=== PATIENT | female | born 1980 | race Caucasian/White ===

== ENCOUNTER → 2024-01-07 09:59 | Outpatient (CLI) | payer OTHER, SELFPAY ==
--- NOTE | 2024-01-07 10:02 | DI.ECHO.S_ITS ---
[facility]---------+ [facility] : : [address] : : [place] : : [id number] : : Phone: [phone] Echocardiogram Report + + :Name: URVASHI BURDICK Study Date: 01/07/2024 Height: 69 in : :Hospital ReadingLocation: Weight: 240 lb : : Gender: Female BSA: 2.2 m2 : :: 1980 Age: 43 yrs BP: 122/94 mmHg: :Reason For Study: ARRHYTHMIA/VENTRAL HERNIA : :Ordering Physician: GERA, : :BHANU Performed By: Rodrigue Cadena : :Referring: [email or web address] : + + Interpretation Summary The ejection fraction is estimated to be 55-60%. There is no significant valvular heart disease. Procedure: A two-dimensional transthoracic echocardiogram with color flow and Doppler was performed. The study quality was technically adequate. There is no prior echocardiogram noted for this patient. The patient was in normal sinus rhythm during the exam. The heart rate ranged between 68-81 bpm during the study. Left Ventricle: The left ventricle is normal in size and wall thickness. The ejection fraction is estimated to be 55-60%. Left ventricular wall motion is normal. Right Ventricle: The right ventricle is not well visualized. Atria: The left atrial size is normal. Right atrium not well visualized. The interatrial septum grossly appears intact with no obvious evidence for an atrial septal defect. Mitral Valve: The mitral valve is normal in structure and function. There is no mitral valve stenosis. There is no mitral regurgitation noted. Aortic Valve: The aortic valve is trileaflet. There is no aortic valve stenosis. No aortic regurgitation is present. Tricuspid Valve: The tricuspid valve is not well visualized, but is grossly normal. There is no tricuspid stenosis. No tricuspid regurgitation. Pulmonic Valve: The pulmonic valve is not well visualized. There is no pulmonic valvular stenosis. There is no pulmonic valvular regurgitation. Great Vessels: The aortic root is normal size. The ascending aorta could not be visualized. The inferior vena cava was not visualized. Pericardium/ Pleura There is no pericardial effusion. There is no pleural effusion. MMode/2D Measurements & Calculations LVIDd: 4.6 cm LVOT diam: 2.0 cm LVIDs: 3.0 cm Ao root diam: 3.1 cm FS: 35.3 % asc Aorta Diam: 3.1 cm IVSd: 0.92 cm Ao Arch Diam (Prox Trans): 2.6 cm LVPWd: 0.89 cm LV thurman. diameter/BSA (cm/m^2): 2.1 LV sys. diameter/BSA (cm/m^2): 1.3 LA A2 area: 12.2 cm2 LA A4 area: 13.5 cm2 LA length (vol): 5.4 cm LA vol: 26.0 ml LA vol index: 11.7 ml/m2 Doppler Measurements & Calculations Ao V2 max: 123.8 cm/sec LVOT Max Jose: 121.6 cm/sec Ao V2 mean: 91.7 cm/sec LV V1 max P.9 mmHg Ao max P.1 mmHg LV V1 VTI: 24.9 cm Ao mean P.6 mmHg BERNIE(I,D): 2.7 cm2 Ao V2 VTI: 28.6 cm BERNIE(V,D): 3.0 cm2 sev ratio: 0.87 BERNIE indexed to BSA (cm^2/m^2): 1.2 MV E max jose: 58.0 cm/sec TR max jose: 224.6 cm/sec MV A max jose: 72.4 cm/sec TR max P.2 mmHg MV E/A: 0.80 PA V2 max: 88.8 cm/sec Med Peak E' Jose: 8.8 cm/sec PA V2 mean: 64.0 cm/sec E/E' med: 6.6 PA mean P.8 mmHg Lat Peak E' Jose: 8.6 cm/sec PA pr(Accel): 29.3 mmHg E/E' lat: 6.8 E/e' average: 6.7 MV dec time: 0.15 sec SV(LVOT): 75.9 ml Reading Physician:12:36 PM
== END ==
LOC: ECHO 10:01
PROVIDERS: Referring Provider Physician Assistant; Visit Provider Physician Assistant
DX: I49.9 Cardiac arrhythmia, unspecified (principal)
CPT/HCPCS: 93306